=== PATIENT | female | born 2000 | race Two or more races ===

== ENCOUNTER 2021-06-27 15:43 | Emergency (ER) | payer OTHER ==
[~2021-06-27] VITALS: Ht 157.5 cm; Wt 61.4 kg
[2021-06-27 15:48] VITALS: BP 98/61
== END 2021-06-27 17:27 | disposition home or self-care (01) ==
LOC: EMS 15:43
DX: A56.01 Chlamydial cystitis and urethritis (principal)
CPT/HCPCS: 99283